=== PATIENT | female | born 1980 | race Caucasian/White ===

== ENCOUNTER 2025-03-27 06:13 | Emergency (ER) | payer MEDICAID ==
[~2025-03-27] VITALS: Ht 167.6 cm; Wt 74.4 kg
[2025-03-27] MEDS ORDERED: CYCL5TAB PO (07:18)
[2025-03-27] MEDS ORDERED: IBUP-1955 PO (07:18)
[2025-03-27] MEDS ORDERED: LIDO30AD10 TP (07:18)
[2025-03-27] MEDS ORDERED: KETOROLAC TROMETHAMINE 15 MG/ML VIAL ONE (07:21)
[2025-03-27] MEDS: KETOROLAC TROMETHAMINE 15 MG/ML VIAL IM ONE (07:32)
[2025-03-27 07:36] VITALS: BP 110/70; TEMP 98.5; O2SAT 98
== END 2025-03-27 07:35 | disposition home or self-care (01) ==
LOC: ER 06:26
DX: S13.4XXA Sprain of ligaments of cervical spine, initial encounter (principal); R51.9 Headache, unspecified; M54.50 Low back pain, unspecified; V43.52XA Car driver injured in collision with other type car in traffic accident, initial encounter; Y93.89 Activity, other specified; Y92.488 Other paved roadways as the place of occurrence of the external cause; Y99.8 Other external cause status
CPT/HCPCS: 99283; 96372; J1885